=== PATIENT | male | born 1940 | race Caucasian/White ===

== ENCOUNTER → 2017-08-09 | Outpatient (CLI) | payer MEDICARE, OTHER | END | disposition home or self-care (01) | LOC: GMAH 10:27 | PROVIDERS: ATTEND Family Medicine | DX: Z12.5 Encounter for screening for malignant neoplasm of prostate (principal); E78.2 Mixed hyperlipidemia | CPT/HCPCS: 84443; 84550; G0103 ==

== ENCOUNTER 2020-03-11 13:42 | Emergency (ER) | payer MEDICARE, OTHER ==
--- NOTE | 2020-03-11 13:55 | ED.PDOC ---
History of Present Illness - General Chief Complaint: Abdominal Pain Time Seen by Provider: 03/11/20 13:51 Source: patient, RN notes reviewed, Vital Signs reviewed - History of Present Illness Initial Comments: Patient is a 79-year-old white male who presents with complaints of left nare bleed. Patient attributes it to the fact that he has a bunch of seasonal allergies and is has been sneezing a lot. Patient states he has high blood pressure but it is well controlled because he takes medicine for it. Patient denies being on blood thinners. The intensity of this bleed was mild. He has mild burning sensation in the nare. Nothing makes it better. Worse when he sneezes. There is no pain that radiates. Timing/Duration: 1-3 hours Severity: mild Improving Factors: nothing Worsening Factors: other - Sneezing Associated Symptoms: denies symptoms Review of Systems - Review of Systems Constitutional: States: no symptoms reported, see HPI. Denies: chills, fever, malaise, weakness EENTM: States: see HPI, nose pain, nose congestion - Due to seasonal allergies.. Denies: eye pain, double vision, ear pain Respiratory: States: no symptoms reported. Denies: cough, short of breath, stridor, wheezing Cardiology: States: no symptoms reported. Denies: chest pain, palpitations, sy ncope Gastrointestinal/Abdominal: States: no symptoms reported. Denies: abdominal pain, diarrhea, nausea, vomiting Musculoskeletal: States: no symptoms reported. Denies: back pain, joint pain, neck pain Skin: States: no symptoms reported. Denies: change in color, lumps, rash Neurological: States: no symptoms reported. Denies: headache, numbness, tingling, weakness Endocrine: States: no symptoms reported Hematologic/Lymphatic: States: no symptoms reported All other Systems: Reviewed and Negative Physical Exam - Physical Exam General Appearance: Alert, Comfortable, No apparent distress, Well Developed, Well Groomed, Well Hydrated, Well Nourished Eye Exam: bilateral normal Ears, Nose, Throat: hearing grossly normal, normal pharynx, other - Left nares with turbinate swelling. Additionally, there is a small amount of dried blood deep in the nare. There is no active bleeding. Neck: non-tender, full range of motion, supple Respiratory: chest non-tender, lungs clear, normal breath sounds, no respiratory distress, no accessory muscle use Cardiovascular/Chest: normal peripheral pulses, regular rate, rhythm, no edema, no gallop, no JVD Peripheral Pulses: radial,right: 2+, radial,left: 2+ Gastrointestinal/Abdominal: normal bowel sounds, non tender, soft Back Exam: normal inspection, no CVA tenderness, no vertebral tenderness Extremity: normal range of motion, non-tender, normal inspection, no pedal edema, no calf tenderness Neurologic: skirt maker II-XII nml as tested, no motor/sensory deficits, alert, normal mood/affect, oriented x 3 Skin Exam: normal color, warm/dry Lymphatic: no adenopathy Progress - Progress Progress: Differential diagnosis: Seasonal rhinitis, accelerated hypertension, anterior nosebleed, posterior nosebleed among others. 03/11/20 13:58 The epistaxis resolved prior to arrival at the hospital. There is no active bleeding at this time. I have recommended patient not blow his nose for the next few days and to wash it gently with some saline spray. He understands the plan of care and agrees with it. Plan on discharge home at this time. Bartolome Epperson M.D. #[id number] Departure - Departure Clinical Impression: Epistaxis not due to trauma, Anterior epistaxis Time of Disposition: 14:00 Disposition: Discharge to Home or Self Care Condition: Excellent Departure Forms: ED Discharge - Pt. Copy, Patient Portal Self Enrollment Instructions: Nosebleeds (DC) Diet: resume usual diet Activity: increase activity as tolerated Referrals: Khoa Vasquez MD [Primary Care Provider] - 1-5 Days
[2020-03-11] MEDS: ASPIRIN (CHEWABLE) 81 MG TAB PO ONE (14:40)
[2020-03-11] MEDS: SODIUM CHLORIDE 0.9% (FLUSH) 10 ML SYG IV PRN (14:41)
--- NOTE | 2020-03-11 14:59 | RAD ---
EXAM DESCRIPTION: Chest,1 View CLINICAL HISTORY: 79 years Male, chest pain COMPARISON: None available. TECHNIQUE: AP radiograph of the chest was obtained. FINDINGS: Trachea is midline.The cardiomediastinal silhouette is normal in size. The pulmonary vasculature is within normal limits.The lungs are clear with no acute consolidation.No evidence of pleural effusions. IMPRESSION: No acute cardiopulmonary process. Electronically signed by: Aleyda Chairez MD 03/11/2020 2:57 PM CDT
--- NOTE | 2020-03-11 16:39 | ED.PDOC ---
History of Present Illness - General Chief Complaint: Abdominal Pain Stated Complaint: abdominal discomfort Time Seen by Provider: 03/11/20 13:51 Information Source: patient, RN notes reviewed, Vital Signs reviewed, family - Exam Limitations: no limitations - History of Present Illness Initial Comments: Patient presents with complaints of 3 to 4 weeks of abdominal distention, belly pain and chest pain. The pain is aching in nature. Nothing makes it better or worse. There is no radiation of the pain. There is some mild associated shortness of breath and peripheral edema. There is no nausea, vomiting or diarrhea. Patient was diagnosed with diabetes and hypertension 3 to 4 years ago but quit taking those medicines very soon after starting them. Patient denies a ny other symptoms. Abdominal Pain Onset Location: generalized abdomen Pain Radiation: no radiation Quality: mild Timing/Duration: other - 3 to 4 weeks. Improving Factors: nothing Worsening Factors: nothing Associated Symptoms: chest pain, fatigue, swelling/mass in abdomen Review of Systems - Review of Systems Constitutional: States: no symptoms reported, see HPI, malaise, weakness. Denies: chills, fever EENTM: States: no symptoms reported. Denies: eye pain, double vision Respiratory: States: no symptoms reported. Denies: cough, short of breath, stridor Cardiology: States: see HPI, chest pain, edema. Denies: palpitations, syncope Gastrointestinal/Abdominal: States: see HPI, abdominal pain, nausea. Denies: vomiting Musculoskeletal: States: no symptoms reported, see HPI. Denies: back pain, neck pain Skin: States: change in color - Pallor Neurological: States: no symptoms reported. Denies: tingling, tremors, weakness Endocrine: States: no symptoms reported Hematologic/Lymphatic: States: no symptoms reported All other Systems: No Change from Baseline Past Medical History (General) - Patient Medical History Hx Stroke: No Hx Congestive Heart Failure: No Hx Diabetes: No Surgical History: no surgical history - Vaccination History Hx Influenza Vaccination: No Hx Pneumococcal Vaccination: Yes - Social History Hx Tobacco Use: Yes Family Medical History - Family History Father Family History: Unknown Living Status: Unknown Physical Exam - Physical Exam General Appearance: Alert, Comfortable, Unkempt, Well Developed, Well Hydrated, Well Nourished Eyes, Ears, Nose, Throat Exam: PERRL/EOMI, normal ENT inspection, pharynx normal Neck: non-tender, full range of motion, supple, normal inspection Respiratory: chest non-tender, lungs clear, normal breath sounds, no respiratory distress, no accessory muscle use Cardiovascular/Chest: normal peripheral pulses, regular rate, rhythm, no edema, no gallop, no JVD, no murmur Peripheral Pulses: No deficit Gastrointestinal/Abdominal: normal bowel sounds, soft, no pulsatile mass, distended, tenderness - Mild generalized Back Exam: normal inspection, no CVA tenderness, no vertebral tenderness Extremity: normal range of motion, non-tender, swelling - 1+ pitting edema to mid shins bilaterally equal Neurologic: white kid buffer II-XII nml as tested, no motor/sensory deficits, alert, normal m ood/affect, oriented x 3 Skin Exam: normal color, warm/dry Lymphatic: no adenopathy Progress - Progress Progress: Differential diagnosis: Bowel obstruction, ACS, pneumonia, PE among others. 03/11/20 17:[address] scan showing multiple abnormalities concerning for metastatic colon cancer. Will discuss with patient and arrange follow-up with his PCP. Plan on discharge home at this time. His cardiac work-up is negative for chest pain. He states the chest pain is not really what brought him in but the abdominal pain and swelling. Plan discharge home this time. His and he agree with plan of care. Bartolome Epperson M.D. #[id number] 03/11/20 18:26 I have placed a marriage and family social worker consult to Raquel Castillo. Patient to follow-up with Dr. Wu or Dr. Wiley in 2 to 3 days. I have discussed this with Nora Valentin NP, and she will also follow-up with Raquel Castillo. I discussed this with the patient and his and they voiced understanding and agreement. - Results/Orders Results/Orders: EXAM DESCRIPTION: Chest,1 View CLINICAL HISTORY: 79 years Male, chest pain COMPARISON: None available. TECHNIQUE: AP radiograph of the chest was obtained. FINDINGS: Trachea is midline.The cardiomediastinal silhouette is normal in size. The pulmonary vasculature is within normal limits.The lungs are clear with no acute consolidation.No evidence of pleural effusions. IMPRESSION: No acute cardiopulmonary process. Electronically signed by: Aleyda Chairez MD 03/11/2020 2:57 PM EXAM: CT Abdomen and Pelvis With Intravenous Contrast CLINICAL HISTORY: The patient is 79 years old and is Male; abdominal pain TECHNIQUE: Axial computed tomography images of the abdomen and pelvis with intravenous contrast. Sagittal and coronal reformatted images were created and reviewed. This CT exam was performed using one or more of the following dose reduction techniques: automated exposure control, adjustment of the mA and/or kV according to patient size, and/or use of iterative reconstruction technique. COMPARISON: No relevant prior studies available. FINDINGS: Lung bases: Right lower lobe mass, 2.4 cm. ABDOMEN: Liver: Multiple hepatic lesions, the largest measuring 6.3 cm at the hepatic dome. Gallbladder and bile ducts: Unremarkable. No calcified stones. No ductal dilation. Pancreas: No findings to suggest acute pancreatitis. No mass visualized. No ductal dilation. Spleen: Unremarkable. No splenomegaly. Adrenals: 2 cm left adrenal lesion, incompletely characterized. Kidneys and ureters: Punctate right nephrolithiasis. Bilateral perinephric stranding, nonspecific. No solid renal lesion or hydronephrosis. Stomach and bowel: Colonic diverticulosis. Irregular wall thickening at the ileocecal junction and cecum/proximal right colon. Terminal ileum is thickened. Distal ileum demonstrates fluid-filled, mildly d ilated small bowel loops. Stomach is unremarkable. PELVIS: Appendix: No findings to suggest acute appendicitis. Bladder: Unremarkable. No mass. Reproductive: Enlarged prostate gland. ABDOMEN and PELVIS: Intraperitoneal space: Unremarkable. No free air. No significant fluid collection. Bones/joints: Degenerative changes in the pubic symphysis. Multilevel degenerative changes in the spine. Bilateral L5 spondylolysis. No acute fracture. No dislocation. Soft tissues: Unremarkable. Vasculature: Unremarkable. No abdominal aortic aneurysm. Lymph nodes: Enlarged ileocolic lymph nodes, largest measuring 2.0 cm. IMPRESSION: 1. Hepatic lesions suspicious for metastatic disease. 2. Right lower lobe mass measuring 2.4 cm detected on incomplete chest CT. Given the other findings on this exam, this may also be a metastatic lesion. 3. Abnormal bowel wall centered at the ileocecal junction. Malignancy favored with inflammatory etiology felt less likely. 4. Mildly enlarged ileocolic lymph nodes, up to 2.0 cm. 5. Partial distal small bowel obstruction versus ileus. 6. Punctate right nephrolithiasis. 7. Colonic diverticulosis. 8. Enlarged prostate gland. 9. 2 cm left adrenal lesion, incompletely characterized. Electronically signed by: Lorena Contreras MD 03/11/2020 5:20 03/11/20 14:27 Telemetry ONCE Sodium Chloride 0.9% (Flush) [Saline Flush Syringe] 3 ml IV PRN PRN 03/11/20 14:30 EKG STAT 03/11/20 16:38 Hold Metformin x 48Hrs [id number] 03/12/20 09:00 Pulse Ox Daily Laboratory Results - last 24 hr 03/11/20 14:50 WBC 7.7 RBC 4.45 L Hgb 8.7 L Hct 28.7 L MCV 64.5 L MCH 19.5 L MCHC 30.3 L RDW 20.6 H Plt Count 355 MPV 8.7 Absolute Neuts (auto) 4.90 Absolute Lymphs (auto) 1.60 Absolute Monos (auto) 1.00 H Absolute Eos (auto) 0.10 Absolute Basos (auto) 0.10 Neutrophils % 64.5 Lymphocytes % 20.7 Monocytes % 12.8 H Eosinophils % 1.3 Basophils % 0.7 PT 10.5 INR 1.06 PTT (SP) 23.3 Sodium 138 Potassium 3.7 Chloride 107 Carbon Dioxide 23 Anion Gap 11.7 L BUN 20 H Creatinine 1.05 BUN/Creatinine Ratio 19.0 Random Glucose 97 Serum Osmolality 278.2 Calcium 8.4 Magnesium 1.9 Total Bilirubin 0.3 Direct Bilirubin 0.1 Indirect Bilirubin 0.2 AST 18 ALT 19 Alkaline Phosphatase 99 Creatine Kinase 55 CK-MB (CK-2) 2.5 CK-MB (CK-2) % Not Reportable Troponin I < 0.02 Serum Total Protein 6.2 L Albumin 3.5 Vital Signs 03/11/20 03/11/20 03/11/20 13:55 16:00 16:33 Temperature 99.2 F Pulse Rate [ 83 70 78 Left Brachial] Respiratory 16 19 Rate Blood Pressure 178/85 163/80 [Left Arm] O2 Sat by Pulse 98 987 H Oximetry EKG performed 11 March 2020 at 1350 hrs.: Normal sinus rhythm at 76 bpm, ST changes, nonspecific, abnormal EKG. No comparison EKG available. Departure - Departure Clinical Impression: Lung mass, Liver metastases, Colonic mass, Abdominal pain Disposition: Discharge to Home or Self Care Condition: Excellent Departure Forms: ED Discharge - Pt. Copy, Patient Portal Self Enrollment Instructions: Nosebleeds (DC) Referrals: Khoa Vasquez MD [Primary Care Provider] - 1-5 Days Home Medications: Ambulatory Orders NK 03/11/20
--- NOTE | 2020-03-11 17:22 | CT ---
EXAM: CT Abdomen and Pelvis With Intravenous Contrast CLINICAL HISTORY: The patient is 79 years old and is Male; abdominal pain TECHNIQUE: Axial computed tomography images of the abdomen and pelvis with intravenous contrast. Sagittal and coronal reformatted images were created and reviewed. This CT exam was performed using one or more of the following dose reduction techniques: automated exposure control, adjustment of the mA and/or kV according to patient size, and/or use of iterative reconstruction technique. COMPARISON: No relevant prior studies available. FINDINGS: Lung bases: Right lower lobe mass, 2.4 cm. ABDOMEN: Liver: Multiple hepatic lesions, the largest measuring 6.3 cm at the hepatic dome. Gallbladder and bile ducts: Unremarkable. No calcified stones. No ductal dilation. Pancreas: No findings to suggest acute pancreatitis. No mass visualized. No ductal dilation. Spleen: Unremarkable. No splenomegaly. Adrenals: 2 cm left adrenal lesion, incompletely characterized. Kidneys and ureters: Punctate right nephrolithiasis. Bilateral perinephric stranding, nonspecific. No solid renal lesion or hydronephrosis. Stomach and bowel: Colonic diverticulosis. Irregular wall thickening at the ileocecal junction and cecum/proximal right colon. Terminal ileum is thickened. Distal ileum demonstrates fluid-filled, mildly dilated small bowel loops. Stomach is unremarkable. PELVIS: Appendix: No findings to suggest acute appendicitis. Bladder: Unremarkable. No mass. Reproductive: Enlarged prostate gland. ABDOMEN and PELVIS: Intraperitoneal space: Unremarkable. No free air. No significant fluid collection. Bones/joints: Degenerative changes in the pubic symphysis. Multilevel degenerative changes in the spine. Bilateral L5 spondylolysis. No acute fracture. No dislocation. Soft tissues: Unremarkable. Vasculature: Unremarkable. No abdominal aortic aneurysm. Lymph nodes: Enlarged ileocolic lymph nodes, largest measuring 2.0 cm. IMPRESSION: 1. Hepatic lesions suspicious for metastatic disease. 2. Right lower lobe mass measuring 2.4 cm detected on incomplete chest CT. Given the other findings on this exam, this may also be a metastatic lesion. 3. Abnormal bowel wall centered at the ileocecal junction. Malignancy favored with inflammatory etiology felt less likely. 4. Mildly enlarged ileocolic lymph nodes, up to 2.0 cm. 5. Partial distal small bowel obstruction versus ileus. 6. Punctate right nephrolithiasis. 7. Colonic diverticulosis. 8. Enlarged prostate gland. 9. 2 cm left adrenal lesion, incompletely characterized. Electronically signed by: Lorena Contreras MD 03/11/2020 5:20 PM CDT
[2020-03-11 19:09] VITALS: BP 150/78; TEMP 98.6; O2SAT 97
== END 2020-03-11 18:55 | disposition home or self-care (01) ==
LOC: ER 13:42
DX: R91.8 Other nonspecific abnormal finding of lung field (principal); R10.84 Generalized abdominal pain; C78.7 Secondary malignant neoplasm of liver and intrahepatic bile duct; K63.9 Disease of intestine, unspecified; F17.200 Nicotine dependence, unspecified, uncomplicated

== ENCOUNTER 2020-04-19 13:17 | Observation (INO) | payer MEDICARE, OTHER ==
--- NOTE | 2020-04-19 13:58 | ED.PDOC ---
History of Present Illness - General Chief Complaint: Syncope/Near Syncope Stated Complaint: Syncope with fall and head injury Time Seen by Provider: 04/19/20 13:48 Additional Information: Patient is a 79-year-old male who presents to the ED via EMS with chief complaint of syncope. Patient was at work today at [employer] in his normal state of health and indicates that without warning he fell backwards and hit his head. Unknown if patient had loss of consciousness but he did feel dazed afterwards. Patient indicates he has never had these symptoms before and has no history of cardiac dysrhythmia or CAD. Patient denies headache and complains of only mild pain in his occiput where he hit his head. Patient denies nausea, vomiting, fever, chills, chest pain, shortness of breath, abdominal pain. Patient indicates he sustained no injuries other than to the back of his head. Patient is not on any blood thinners. Daughter indicates that patient is presently being worked up for chronic abdominal pain but patient denies abdominal pain at this time. - History of Present Illness Allergies/Adverse Reactions: Allergies NO KNOWN ALLERGY Allergy (Verified 04/19/20 13:47) Home Medications: Ambulatory Orders NK 03/11/20 Review of Systems - Review of Systems Constitutional: States: no symptoms reported. Denies: chills, fever, weakness EENTM: Denies: blurred vision Respiratory: States: no symptoms reported. Denies: cough, short of breath Cardiology: Denies: chest pain, palpitations Gastrointestinal/Abdominal: States: no symptoms reported. Denies: abdominal pain, nausea, vomiting Musculoskeletal: States: no symptoms reported. Denies: back pain, muscle pain Skin: States: no symptoms reported. Denies: rash Neurological: Denies: numbness, paresthesia, tingling, tremors, weakness All other Systems: Reviewed and Negative Past Medical History (General) - Patient Medical History Hx Stroke: No Hx of COPD: No Hx Cardiac Disorders: No Hx Congestive Heart Failure: No Hx Hypertension: No Hx Diabetes: No Hx Cancer: No Surgical History: no surgical history - Vaccination History Hx Tetanus, Diphtheria Vaccination: No Hx Influenza Vaccination: No Hx Pneumococcal Vaccination: No Immunizations Up to Date: No - Social History Hx Tobacco Use: Yes Hx Alcohol Use: No Hx Substance Use: No Hx Substance Use Treatment: No Hx Depression: No - Female History Patient is a Female of Child Bearing Age (10 -59 yrs old): No Patient : No Physical Exam - Physical Exam General Appearance: Alert, Comfortable, No apparent distress, Well Developed, Well Nourished Eyes, Ears, Nose, Throat Exam: PERRL/EOMI, normal ENT inspection, other - Patient with small hematoma to the occiput but with no discrete laceration. Neck: non-tender, full range of motion, supple, other - Negative cervical vertebral tenderness to palpation Cardiovascular/Respiratory: regular rate, rhythm, no M/R/G, normal peripheral pulses, no JVD, normal breath sounds Gastrointestinal/Abdominal: normal bowel sounds, non tender, soft, no organomegaly Back Exam: normal inspection, no CVA tenderness, no vertebral tenderness Extremity: normal range of motion, non-tender, normal inspection, no pedal edema, other - Full range of motion bilateral upper extremity and lower extremities Mental Status: alert, oriented x 3 magnetic tester Exam: normal hearing, normal speech, PERRL Motor/Sensory: no motor deficit, no sensory deficit Skin Exam: normal color, warm/dry Progress - Progress Progress: 04/19/20 14:01 Differential diagnosis includes but is not limited to closed head injury, intracerebral hemorrhage, cardiac dysrhythmia, electrolyte disorder. 04/19/20 14:02 EKG: Normal sinus rhythm, rate 81, normal axis, normal QRS, occasional PVC, normal T waves, nonspecific ST changes. Negative STEMI. EKG read by Yaya Vasquez MD. 04/19/20 16:17 Patient reexamined and is feeling well at this time, his headache is essentially resolved. Patient's head CT is unremarkable as are his labs and clinically patient with syncope. Patient scalp wound does not require stapling, will admit for syncope evaluation. Patient is comfortable and stable at this time. 04/19/20 16:20 Case discussed with Nora Valentin hospitalist, who accepts patient for admission. - Results/Orders Results/Orders: 04/19/20 13:49 URINALYSIS Stat 04/19/20 14:00 EKG .ONCE Laboratory Results - last 24 hr 04/19/20 04/19/20 04/19/20 14:18 14:18 14:18 WBC 9.4 RBC 4.92 Hgb 10.3 L Hct 32.1 L MCV 65.2 L MCH 20.9 L MCHC 32.1 L RDW 24.6 H Plt Count 386 MPV 8.7 Absolute Neuts (auto) 5.90 Absolute Lymphs (auto) 2.80 Absolute Monos (auto) 0.60 Absolute Eos (auto) 0.00 Absolute Basos (auto) 0.00 Neutrophils % 63.3 Lymphocytes % 29.5 Monocytes % 6.7 Eosinophils % 0.0 L Basophils % 0.5 PT 11.2 H INR 1.13 Sodium 135 Potassium 3.1 L Chloride 103 Carbon Dioxide 20 L Anion Gap 15.1 BUN 30 H Creatinine 0.94 BUN/Creatinine Ratio 31.9 H Random Glucose 90 Serum Osmolality 275.8 Calcium 8.2 L Total Bilirubin 0.6 AST 23 ALT 17 Alkaline Phosphatase 132 H Troponin I Serum Total Protein 6.0 L Albumin 3.1 L Globulin 2.9 Albumin/Globulin Ratio 1.1 04/19/20 14:18 WBC RBC Hgb Hct MCV MCH MCHC RDW Plt Count MPV Absolute Neuts (auto) Absolute Lymphs (auto) Absolute Monos (auto) Absolute Eos (auto) Absolute Basos (auto) Neutrophils % Lymphocytes % Monocytes % Eosinophils % Basophils % PT INR Sodium Potassium Chloride Carbon Dioxide Anion Gap BUN Creatinine BUN/Creatinine Ratio Random Glucose Serum Osmolality Calcium Total Bilirubin AST ALT Alkaline Phosphatase Troponin I 0.02 Serum Total Protein Albumin Globulin Albumin/Globulin Ratio - EKG/XRAY/CT CT Ordered: Yes Departure - Departure Clinical Impression: Syncope Qualifiers: Syncope type: unspecified Qualified Code(s): R55 - Syncope and collapse Contusion of scalp Qualifiers: Encounter type: initial encounter Qualified Code(s): S00.03XA - Contusion of scalp, initial encounter Time of Disposition: 16:19 Disposition: Admit Patient Condition: Fair Home Medications: Ambulatory Orders NK 03/11/20 Decision To Admit - Decistion To Admit Decision to Admit Date: 04/19/20 Decision to Admit Time: 16:20
--- NOTE | 2020-04-19 15:01 | CT ---
Sex: Male. : 1940. TECHNIQUE: Axial scans of the brain without contrast including multiplanar computer-generated reformations. Total Dose Length Product: 859. This exam was performed according to our departmental dose-optimization program, which includes automated exposure control, adjustment of the mA and/or kV according to patient size and/or use of iterative reconstruction technique. Comparison studies: None. Clinical history: CHI. Scalp: There is mild swelling in the occipital scalp. Intracranial mass: None. Intracranial density: Unremarkable. Intracranial hemorrhage: No intracranial hemorrhage. Extra-axial fluid collection: None. Midline shift: None Ventricles, subarachnoid spaces and sulci: Generally widened from atrophy. Calvarium: Unremarkable. Orbits: Unremarkable. Paranasal sinuses: Aerated. IMPRESSION: 1. No acute intracranial findings. 2. Atrophy. Electronically signed by: Slava Gonzalez MD 04/19/2020 2:59 PM CDT
--- NOTE | 2020-04-19 15:02 | RAD ---
: 1940. Technique: Portable AP chest x-ray. Comparison: March 11, 2020. Clinical history: syncope. Heart size: Normal. Lungs: Shallow inspiration. New left retrocardiac opacity blurring the diaphragm contour consistent with atelectasis or pneumonia. May be exaggerated by lordotic positioning. Pleura: No pleural effusion. No pneumothorax. Mediastinum and suzie: Unremarkable. Skeletal: Unremarkable. Support tubings: None. Impression: 1. Left lower lobe infiltrate/atelectasis. Electronically signed by: Slava Gonzalez MD 04/19/2020 3:00 PM CDT
[2020-04-19] MEDS ORDERED: SODIUM CHLORIDE 0.9% (FLUSH) 10 ML SYG IV PRN (17:23)
[2020-04-19] MEDS ORDERED: ONDANSETRON INJ 4 MG/2 ML VIAL IV PRN (17:23)
[2020-04-19] MEDS ORDERED: IV SET AND CAP CHANGE INJ INJ SCH (17:30)
[2020-04-19] MEDS ORDERED: KCL 20MEQ/0.45% NS 1,000 ML IVS ONE (17:32)
[2020-04-19] MEDS ORDERED: POTASSIUM CHLORIDE 20 MEQ TAB PO ONE (17:33)
[2020-04-19] MEDS ORDERED: ENOXAPARIN SODIUM 40 MG/0.4 ML SYG SUBCU SCH (21:00)
[2020-04-19] MEDS: SODIUM CHLORIDE 0.9% (FLUSH) 10 ML SYG IV SCH (22:05)
[2020-04-20] MEDS ORDERED: HALOPERIDOL LACTATE INJ 5 MG/ML VIAL IM PRN (06:18)
[2020-04-20] MEDS ORDERED: diphenhydrAMINE HCL 50 MG/ML VIAL IV PRN (06:19)
[2020-04-20] MEDS ORDERED: PANTOPRAZOLE SODIUM IV 40 MG VIAL IV SCH (06:30)
[2020-04-20] MEDS: SODIUM CHLORIDE 0.9% (FLUSH) 10 ML SYG IV SCH (09:35)
[2020-04-20 09:55] VITALS: BP 132/84; TEMP 98.3; O2SAT 98
--- NOTE | 2020-04-23 08:10 | SSS ---
SUPERVISING PHYSICIAN: Dmitriy James MD DATE OF ADMISSION: 04/19/20 DATE OF DISCHARGE: 04/20/20 DISCHARGE DIAGNOSIS: 1. Syncope with unknown loss of consciousness. 2. Possible metastatic disease per CT in February of 2020. 3. Hypertension, presently on no medications. 4. Diabetes mellitus, type 2, presently on no medications. CHIEF COMPLAINT: Syncope. HISTORY OF PRESENT ILLNESS: This is a 79-year-old male patient who came to the Emergency Room via ambulance after he passed out as work. He works at a local grocery store. He was in his normal state of health and he fell backwards. Other employees found him down on the ground. It is unknown if he lost consciousness or not. He was brought to the Emergency Room and his vital signs showed temperature 97.6, heart rate 78, blood pressure 170/87, respiratory rate 16, O2 saturation 100% on room air. Lab studies were done. His CBC was unremarkable. His electrolytes showed a potassium of 3.1, calcium 8.2, alkaline phosphatase 132. Urinalysis was essentially unremarkable. Chest x-ray showed left lower lobe infiltrate, atelectasis. Head CT showed 1) No acute intracranial findings. 2) Atrophy. He was placed in observation in the hospital for close observation as well as neurologic checks. It is to be noted there were no respiratory symptoms. PAST MEDICAL HISTORY: 1. Benign prostatic hypertrophy. 2. Hypertension. 3. Diabetes mellitus, type 2. PAST SURGICAL HISTORY: 1. Prostatectomy. OUTPATIENT MEDICATIONS: None. ALLERGIES: NO KNOWN DRUG ALLERGIES. FAMILY HISTORY: Positive for kidney failure. SOCIAL HISTORY: He works at [employer]. He quit smoking about 40 years ago. He does not drink alcohol or use illicit drugs. REVIEW OF SYSTEMS: Difficult to obtain due to the patient's mild confusion. GENERAL: Negative for fever, fatigue or weight changes. HEENT: Negative for sinus symptoms, ear pain, vision changes or sore throat. RESPIRATORY: Negative for wheezing, coughing or shortness of breath. CARDIAC: Negative for chest pain, palpitations or tachycardia. GASTROINTESTINAL: Negative for nausea, vomiting, diarrhea, constipation. GENITOURINARY: Negative for hematuria, dysuria or polyuria. SKIN: Negative for lesions or rashes. NEUROLOGIC: As per history of present illness. Negative for headache or seizures. PHYSICAL EXAMINATION: VITAL SIGNS: Temperature 99.8, heart rate 69, blood pressure 132/84, respiratory rate 16, O2 saturation 98% on room air. GENERAL: This is a 79-year-old male patient sitting up in his hospital bed. He is in no acute distress. HEENT: Normocephalic. He does have a laceration to his scalp on the back of his head. It has been stapled. There is no drainage at this time. Oropharynx is clear. NECK: Supple without mass. RESPIRATORY: Essentially clear to auscultation bilaterally. CHEST: There is equal rise and fall of the chest with inspiration and expiration. CARDIOVASCULAR: Regular rate and rhythm. GASTROINTESTINAL: Abdomen is soft, nondistended, nontender. Bowel sounds are positive. EXTREMITIES: No cyanosis, clubbing or edema. NEUROLOGIC: Awake and alert. Cranial nerves II-XII are grossly intact as tested. SKIN: Warm and dry. LABORATORY: Labs and films are as per history of present illness. HOSPITAL COURSE: Initially, the patient answered all questions appropriately. There was no one to help with his admission as his family was not there. Initially, according to the patient he had had no significant health history, but after questioning him, there were some discrepancies in his health history. Upon reviewing the chart, it was found that there was a CT scan done in February of 2020 that showed 1) Hepatic lesion suspicious for metastatic disease. 2) Right lower lobe mass measuring 2.4 cm detected on incomplete chest CT. Given the other findings on this exam, this may be another metastatic lesion. 3) Abnormal bowel wall centered at the ileocecal junction. Malignancy favored with inflammatory etiology felt most likely. 4) Mildly enlarged ileocolic lymph nodes up to 2.2 cm. 5) Partial distal small bowel obstruction versus ileus. 6) Punctate right nephrolithiasis. 7) Colonic diverticulosis. 8) Enlarged prostate. 9) 2 cm left adrenal lesion, incompletely characterized. The patient had denied any significant history. Overnight, the patient became very belligerent and refused to do his morning lab. I had also ordered a CT scan to be done on his chest and abdomen and pelvis. He refused those as well. His daughter did come to the hospital and she did verify that the patient had been told he had some masses in the stomach and that he was to have a colonoscopy on of this week in [place]. Other than that, she could not give us any details. She even gave a list over the last few months that actually said that he had not eaten or drank very much and had actually lost about 40 pounds since March 01. He has become very forgetful and confused. She also admitted that he was seeing things that were not there and has been very off balance. He also gets very angry and is sleeping more than usual. He also complains of stomach pains every day. She also said he had not seen a doctor since he had seen Dr. Riggs about 4 years ago. She says there was one person he saw at [facility] but she was not aware of who that was and they scheduled the colonoscopy for . Due to the patient's refusal to have any testing done today, the daughter and I have agreed to let him go home as he stays with her. I have ordered as an outpatient an MRI of the brain, echocardiogram, carotid sonogram and CT of the chest to be done was an outpatient. He will followup with Dr. Mccurdy on Tuesday morning. DISCHARGE PLAN: The patient will be discharged home in stable condition. His daughter and the patient were strongly encouraged to complete the testing at [facility] and to have followup with Dr. Mccurdy. The patient's prognosis is poor. Hopefully, Dr. Mccurdy can review all of the testing and get a plan of care for the patient. He is to resume his previous diet and activity although I have recommended that the daughter watch him closely and that the patient not drive or return to work until he sees Dr. Mccurdy. He is to return to the hospital or call Dr. Mccurdy's office any for any problems or complications. DISCHARGE MEDICATIONS: None. #[id number] [facility]
== END 2020-04-20 12:43 | disposition home or self-care (01) ==
LOC: ER 13:17 → MS 16:45
PROVIDERS: ADMIT Nurse Practitioner Acute Care; ATTEND Nurse Practitioner Acute Care
DX: R55 Syncope and collapse (principal); S00.03XA Contusion of scalp, initial encounter; I10 Essential (primary) hypertension; E11.9 Type 2 diabetes mellitus without complications; R51 Headache; I49.3 Ventricular premature depolarization; N40.0 Benign prostatic hyperplasia without lower urinary tract symptoms; R91.8 Other nonspecific abnormal finding of lung field; R59.0 Localized enlarged lymph nodes; N20.0 Calculus of kidney; K57.30 Diverticulosis of large intestine without perforation or abscess without bleeding; Z87.891 Personal history of nicotine dependence; W18.39XA Other fall on same level, initial encounter; Y93.89 Activity, other specified; Y92.512 Supermarket, store or market as the place of occurrence of the external cause; Y99.0 Civilian activity done for income or pay
CPT/HCPCS: 96366 ×2; 96365; 96372 ×2; J1630; J1650; A4216 ×2; J3480; 80053; 36415; 81001; 85025; 85610; 84484; 71045; 70450; 94760; 99285; 93005; G0378

== ENCOUNTER → 2020-04-21 | Outpatient (CLI) | payer MEDICARE, OTHER ==
--- NOTE | 2020-04-22 09:44 | CT ---
EXAM DESCRIPTION: Chest w/o Contrast CLINICAL HISTORY: 79 years Male, MALIGNANT NEOPLASM OF LIVER COMPARISON: CT abdomen and pelvis 03/11/2020. TECHNIQUE: CT images through the chest without IV contrast. Multiplanar reformations provided. This exam was performed according to our departmental dose-optimization program, which includes automated exposure control, adjustment of the mA and/or kV according to patient size and/or use of iterative reconstruction technique. CT CHEST FINDINGS: Heart and mediastinum: Enlarged liver. Trace pericardial effusion. Unremarkable esophagus. No pathologically enlarged mediastinal lymph nodes. Evaluation for hilar adenopathy limited without intravenous contrast. There is a 9 mm round soft tissue nodule right lateral to the aorta at the level of the gastric esophageal junction on series 2, axial image 50. Mild atherosclerosis. Thyroid Gland: Normal. Lungs: 2.5 cm pulmonary mass in the right lower lobe. No suspicious pulmonary nodule elsewhere. Airways: Normal. Pleura: Normal. Musculoskeletal and Soft Tissues: No acute fracture or aggressive appearing osseous lesion. Soft tissues unremarkable. Subphrenic Structures: Large ill-defined hypoattenuating lesions within the liver. Visualized small bowel dilated up to 4.5 cm with air-fluid level. IMPRESSION: 1. Again demonstrated 2.5 cm pulmonary mass in the right lower lobe probably representing metastasis. No additional pulmonary nodules. 2. Again demonstrated ill-defined lesions within liver likely representing hepatic metastases. 3. Unchanged indeterminate subcentimeter para-aortic soft tissue nodule at the level of the gastroesophageal junction. 4. Worsening small bowel obstruction versus ileus. Electronically signed by: Franco Alonzo MD 04/22/2020 9:42 AM CDT
--- NOTE | 2020-04-22 11:44 | MRI ---
EXAM DESCRIPTION: Brain w/o Contrast: MRI. CLINICAL HISTORY: SYNCOPE COMPARISON: Carotid duplex ultrasound with vertebral arteries on this visit. CT scan of the brain April 19. TECHNIQUE: Multiplanar, high-field MRI unit, multiple diffusion sequences, multiple conventional sequences without contrast. FINDINGS: Minimal hyperintense FLAIR and T2-weighted signal in the periventricular white matter abutting the frontal horns of the lateral ventricles and minimal bilateral symmetric signal in the paraventricular parietal lobes also small foci bilaterally in the parietal centrum semiovale. No hemorrhage, no cerebral edema, no midline shift.. Normal signal in the bilateral basal ganglia. Normal signal in the brainstem and cerebellar hemispheres.. Concordance of the diffusion and non-diffusion sequences with no diffusion restriction. Cortical sulci, ventricles, and other CSF spaces, and the subdural spaces are prominent for patient's age. No effacement or displacement. No midline shift. No extra-axial hemorrhage. Normal flow signal void in the major vessels of the little traverse Hernandez, and the venous sinuses. IACs are symmetric bilaterally. Chronic and acute fluid signal/edema in the bilateral mastoid air cells. No mass effect in the bilateral cerebellopontine angles. Pituitary gland occupies most of the sella. Base of the cerebellar tonsils is at the level of the foramen magnum. Paranasal sinuses are unremarkable.. The bony calvarium is intact. IMPRESSION: 1. Minimal white matter signal changes are essentially symmetric bilaterally and most likely related to aging and cerebral microvascular disease. No intra-axial extra-axial hemorrhage, extra-axial fluid, intra-axial cerebral edema or midline shift. 2. Central and cortical atrophy is prominent for patient's age. 3. Normal noncontrast MRI diffusion study with no evidence of significant ischemia or subacute or acute infarction. Electronically signed by: Deion Burch MD 04/22/2020 11:43 AM CDT
--- NOTE | 2020-04-22 11:48 | US ---
EXAM DESCRIPTION: Carotid Duplex: ULTRASOUND. CLINICAL HISTORY: 79 years Male SYNCOPE COMPARISON: MRI scan of the brain on the same visit. CT scan of the head April 19. TECHNIQUE: Transcutaneous scanning utilizing zaragoza-scale and Doppler modes to evaluate the bilateral carotid systems and vertebral arteries. Percentage of diameter of stenosis or no stenosis recorded will be based upon NASCET criteria. FINDINGS: Peak systolic/end diastolic (CM-Sec) CCA Right 100/11 Left 82/12. ICA Right proximal 37/9, mid 60/14. Left proximal 40/12, Distal 54/17. Vertebral Right 47/10 Left 37/8. ECA (PS Only) Right 57 left 54. ICA/CCA peak systolic ratio: Right 0.6 Left 0.7 ICA/CCA end diastolic ratio: Right 1.3 Left 1.4 Vertebral arteries: antegrade flow. Comments Comments: Bilateral atherosclerotic calcification. Mid right CCA: Area stenosis 26% and diameter stenosis 29%. IMPRESSION: 1. Doppler evaluation of the bilateral carotid systems and vertebral arteries shows no hemodynamically significant stenoses (less than 70%). 2. No significant amount of plaque in the carotid arteries bilaterally. Bilateral vertebral arteries showed antegrade-cephalad flow. Electronically signed by: Deion Burch MD 04/22/2020 11:46 AM CDT
== END ==
LOC: ECHO 13:08
PROVIDERS: ATTEND Nurse Practitioner Acute Care
DX: C78.7 Secondary malignant neoplasm of liver and intrahepatic bile duct (principal); I51.7 Cardiomegaly; I50.30 Unspecified diastolic (congestive) heart failure; I35.1 Nonrheumatic aortic (valve) insufficiency; R91.8 Other nonspecific abnormal finding of lung field; R19.09 Other intra-abdominal and pelvic swelling, mass and lump; K63.9 Disease of intestine, unspecified; R90.82 White matter disease, unspecified; G31.9 Degenerative disease of nervous system, unspecified; R55 Syncope and collapse; R41.82 Altered mental status, unspecified